=== PATIENT | female | born 1990 | race Caucasian/White ===

== ENCOUNTER 2017-02-09 13:40 | Emergency (ER) | payer OTHER ==
[~2017-02-09] VITALS: Ht 175.3 cm; Wt 74.9 kg
[2017-02-09] MEDS ORDERED: ATARAX,VISTARIL25 MG PO (15:56)
[2017-02-09] MEDS ORDERED: LYRICA50 MG PO (15:56)
[2017-02-09] MEDS ORDERED: CLONIDINE HCL0.1 MG PO (15:56)
[2017-02-09 16:21] VITALS: BP 117/71
== END 2017-02-09 16:22 | disposition home or self-care (01) ==
LOC: EME 13:40
DX: F11.23 Opioid dependence with withdrawal (principal); F14.10 Cocaine abuse, uncomplicated; J45.909 Unspecified asthma, uncomplicated; F41.9 Anxiety disorder, unspecified; F31.9 Bipolar disorder, unspecified; F17.200 Nicotine dependence, unspecified, uncomplicated; Z88.0 Allergy status to penicillin
CPT/HCPCS: 99281; 99284